=== PATIENT | male | born 1975 | race Caucasian/White ===

== ENCOUNTER 2020-11-16 05:32 | Day surgery (SDC) | payer OTHER ==
[~2020-11-16] VITALS: Ht 175.3 cm; Wt 102.1 kg
[~2020-11-16 05:32] MED LIST: CHANTIX 1 MG TAB1 MG PO; NORVASC5 MG PO
[2020-11-16 06:25] VITALS: BP 153/89; Ht 175.3 cm; Wt 102.1 kg
[2020-11-16 06:27] LABS: BASOPHILS 0.2 % (0-2); EOSINOPHILS 1.7 % (0-7); HEMATOCRIT 42.3 % (42.0-54.0); HEMOGLOBIN 15.4 g/dL (13.5-17.5); IMMATURE GRANULOCYTES 0.5 % (0-5); LYMPHOCYTE ABS# 2.81 10x3/uL (1.32-3.57); LYMPHOCYTES 31.8 % (15-50); MCH 33.4 pg (26.0-34.0); MCHC 36.4 g/dL (31.0-37.0); MCV 91.8 fL (80.0-100.0); MEAN PLATELET VOLUME 12.2 fL (7.4-10.4); MONOCYTES 11.4 % (2-11); NEUTROPHILS 54.4 % (40-80); PLATELET COUNT 286 10x3/uL (130-400); RBC 4.61 10x6/uL (4.20-6.10); WBC 8.8 10x3/uL (4.8-10.8)
[2020-11-16 06:56] LABS: CALC OSMOLALITY 280 mosm/kg (275-300); CHLORIDE - SERUM 104 mmol/L (98-107); CREATININE - SERUM 0.7 mg/dL (0.6-1.3); POTASSIUM - SERUM 4.3 mmol/L (3.5-5.1); SODIUM 138 mmol/L (136-145); UREA NITROGEN 20 mg/dL (7-18); eGFR NON AFRICAN AMERICAN > 90 mL/min (90-120)
[2020-11-16 06:57] LABS: CALCIUM 8.4 mg/dL (8.5-10.1); CARBON DIOXIDE 22.2 mmol/L (21.0-32.0); GLUCOSE 131 mg/dL (74-106)
--- NOTE | 2020-11-16 09:25 | HP ---
PATIENT: GENE HENNESSY MEDICAL RECORD: [id number] ACCOUNT: [id number] LOCATION:[facility] : 71 ADMISSION DATE: 11/16/20 PCP: JOAQUIN SANCHEZ MD HISTORY AND PHYSICAL EXAMINATION HISTORY OF PRESENT ILLNESS: Mr. Hennessy is a 45-year-old male with severe problems with nasal obstruction, septal deviation, turbinate hypertrophy. He is being refractory to medical management, difficulty with CPAP. He has been admitted for septoplasty and bilateral inferior turbinate reduction. PAST MEDICAL HISTORY: Includes hypertension. PAST SURGICAL HISTORY: None. CURRENT MEDICATIONS: Chantix, amlodipine. ALLERGIES: No known drug allergies. PHYSICAL EXAMINATION: GENERAL: He is healthy-appearing, developmentally normal. FACE: Normal, symmetric, no lesions. EYES: Sclerae and conjunctivae are normal. EARS: Canals and TMs are normal. NOSE: Severe septal deviation, large turbinates. No masses, polyps or drainage. ORAL CAVITY AND OROPHARYNX: Tongue protrudes in midline. Pharynx normal. NECK: No masses, no adenopathy. CHEST: Clear. CARDIOVASCULAR: Regular rate and rhythm, no murmur. EXTREMITIES: Normal. IMPRESSION: Nasal obstruction, septal deviation, turbinate hypertrophy refractory to medical management, sleep apnea and difficulty with CPAP. PLAN: Septoplasty and bilateral inferior turbinate reduction. TRANSINT:[id number] Voice Confirmation ID: [id number] DOCUMENT ID: [id number] LANA HUGHES MD at 0925 CC: [id number] DICTATION DATE: 11/14/20 1335 BUILD MASTER: 11/14/20 [id number] [place] [address]
--- NOTE | 2020-11-16 09:36 | NUR ---
OPA OUT 0939
--- NOTE | 2020-11-16 09:36 | NUR ---
OPA IN AIRWAY ON ADMIT
--- NOTE | 2020-11-16 12:47 | NUR ---
1110 IV DC'D. CATHETER TIP INTACT. NO BLEEDING AT SITE. COBAN DRESSING APPLIED. 1115 DISCHARGE INSTRUCTIONS REVIEWED WITH PATIENT AND HIS MOTHER. BOTH VOICE UNDERSTANDING OF INSTRUCTIONS. PT REPORTS THAT HIS PAIN LEVEL IS DECREASING FROM A 6 OUT OF 10 TO A 4 OUT OF 10.
--- NOTE | 2020-11-19 08:27 | OP ---
PATIENT NAME: GENE HENNESSY MEDICAL RECORD: [id number] :71 LOCATION:[facility] ADMISSION DATE: SURGEON: LANA HUGHES MD DATE OF OPERATION: 11/16/2020 PREOPERATIVE DIAGNOSES: Nasal obstruction, septal deviation, turbinate hypertrophy, sleep apnea. POSTOPERATIVE DIAGNOSES: Nasal obstruction, septal deviation, turbinate hypertrophy, sleep apnea. PROCEDURE: Septoplasty and bilateral inferior turbinate reduction. SURGEON: Lana Hughes MD ANESTHESIA: General orotracheal. BLOOD LOSS: 2 cc. SPECIMENS: None. NASAL PACKING: Peñaloza splints bilaterally. COMPLICATIONS: None. DISPOSITION: Recovery, stable. DESCRIPTION OF PROCEDURE: He was brought to the operating room and placed in supine position, sedated and intubated by anesthesia. The eyes were taped. Head drape was applied. Nose was examined using a headlight and nasal speculum. There was really severe septal deviation to the left. Both sides of the septum and floor of the nose, and inferior turbinates were injected with a total of less than 2 cc of 1% lidocaine with 1:100,000 epinephrine with long 27-gauge needle. Afrin pledgets were placed bilaterally. He had been decongested with Afrin preoperatively as well. He was positioned, prepped and draped in the usual fashion. All the Afrin pledgets were removed. A left-sided Levar incision was made and ipsilateral mucoperichondrial flap was elevated. A caudal was used to excise the redundant cartilage, it was off into the floor of the left side of the nose back to the maxillary spine. Bony cartilaginous junction was disarticulated and a posterior mucoperichondrial flap on the contralateral side was elevated. A scissor was used to make a cut above and below a septal spur that was bony on the left side and then a chisel was used to remove the anterior bony spur. Relaxing incisions were made in the cartilage. This allowed the septum to fall back to the midline. Both inferior turbinates were medialized with a freer. A Gruenwald was used to take down the inferior redundant portions of the turbinate and a suction cautery on a setting of 25 was used to stop any bleeding and then both outfractured with a Meeker elevator. The [place] incision was closed with interrupted 4-0 chromic. The nasopharynx was suctioned. Good straight airway all the way back on both sides. Peñaloza splints with mupirocin ointment were placed bilaterally and sutured through the anterior membranous septum with a 2-0 Prolene on a Alex needle. He was awakened, extubated, and transported to recovery in good condition. No complications. TRANSINT:[id number] Voice Confirmation ID: [id number] DOCUMENT ID: [id number] OPERATIVE REPORT [id number] GENE HENNESSY, LANA BARAHONA at 0827 CC: [id number] DICTATION DATE: 11/16/20930 HEAD KNITTING MACHINE FIXER: 11/16/20 1145 [facility] 11/16/20 [id number] [place] [address]
== END 2020-11-16 11:30 | disposition home or self-care (01) ==
LOC: D.OPS 05:32
PROVIDERS: Anesthesiology; ATTEND Otolaryngology
DX: J34.89 Other specified disorders of nose and nasal sinuses (principal); J34.2 Deviated nasal septum; J34.3 Hypertrophy of nasal turbinates; G47.30 Sleep apnea, unspecified; I10 Essential (primary) hypertension

== ENCOUNTER 2020-12-01 14:14 | Emergency (ER) | payer OTHER ==
[~2020-12-01] VITALS: Ht 175.3 cm; Wt 102.3 kg
[2020-12-01 14:17] VITALS: BP 167/99; Ht 175.3 cm; Wt 102.3 kg
== END 2020-12-01 16:13 | disposition home or self-care (01) ==
LOC: D.ER 14:14
DX: R04.0 Epistaxis (principal); I10 Essential (primary) hypertension; Z72.0 Tobacco use